=== PATIENT | female | born 1960 | race Caucasian/White ===

== ENCOUNTER → 2017-08-09 | Outpatient (CLI) | payer BC ==
[~2017-08-09] MED LIST: REGADENOSON 0.4 MG/5 ML DISP.SYRIN. IV ONE
--- NOTE | 2017-08-09 11:35 | PCVCIMAG ---
APPROVED REPORT Study performed: 08/09/2017 07:42:35 EXAM: Comprehensive 2D, Doppler, and color-flow Echocardiogram Patient Location: Echo lab Status: routine BSA: 1.94 HR: 56 bpmBP: 104/62 mmHg Rhythm: NSR Other Information Study Quality: Adequate Risk Factors: Cardiac Risk Factors: HTN, DM Indications Abnormal ECG 2D Dimensions LVEF(%): 48.49 (>50%) IVSd: 8.99 (7-11mm) LVDd: 45.02 mm PWd: 9.92 (7-11mm) LVDs: 34.07 (25-40mm) Left Atrium: 37.50 (27-40mm) Aortic Root: 25.59 mm LV Single Plane 4CH: 59.62 % LV Single Plane 2CH: 60.69 %Bentley's LVEF: 60.15 % Biplane EF: 60.1 % Volumes Left Atrial Volume (Systole) Single Plane 4CH: 61.20 mLSingle Plane 2CH: 72.06 mL LA ESV Index: 36.00 mL/m2 Aortic Valve AoV Peak Raul.: 1.73 m/s AO Peak Gr.: 11.92 mmHgLVOT Max P.40 mmHg LVOT Max V: 1.16 m/s Mitral Valve E/A Ratio: 0.9 MV Decel. Time: 314.23 ms MV E Max Raul.: 0.93 m/s MV A Raul.: 1.07 m/s IVRT: 107.27 ms Pulmonary Valve PV Peak Raul.: 1.14 m/sPV Peak Gr.: 5.23 mmHg Pulmonary Vein P Vein S: 0.43 m/sP Vein A: 0.33 m/s P Vein D: 0.62 m/sP Vein A Dur.: 138.4 msec P Vein S/D Ratio: 0.69 Tricuspid Valve TR Peak Raul.: 2.34 m/s TR Peak Gr.: 21.90 mmHg Left Ventricle The left ventricle is normal size. There is normal LV segmental wall motion. There is normal left ventricular wall thickness. Left ventricular systolic function is normal. The left ventricular ejection fraction is within the normal range. LVEF is 60-65%. Grade I - abnormal relaxation pattern. Right Ventricle The right ventricle is normal size. The right ventricular systolic function is normal. Atria The left atrium size is normal. The right atrium size is normal. Aortic Valve The aortic valve is normal in structure. No aortic regurgitation is present. There is no aortic valvular stenosis. Mitral Valve The mitral valve is normal in structure. Mild mitral regurgitation. No evidence of mitral valve stenosis. Tricuspid Valve The tricuspid valve is normal in structure. Trace tricuspid regurgitation with PAP of 29mmHg. Pulmonic Valve The pulmonary valve is normal in structure. There is no pulmonic valvular regurgitation. Great Vessels The aortic root is normal in size. IVC is normal in size and collapses with >50% inspiration Pericardium There is no pericardial effusion. <Conclusion> The left ventricle is normal size. LVEF is 60-65%. The aortic valve is normal in structure. The mitral valve is normal in structure. Mild mitral regurgitation. The tricuspid valve is normal in structure. Trace tricuspid regurgitation with PAP of 29mmHg. The pulmonary valve is normal in structure. There is no pericardial effusion.
--- NOTE | 2017-08-10 11:42 | PCVCIMAG ---
APPROVED REPORT Exam: Nuclear Stress Test Indication: Pre-Operative CV evaluation Patient Location: Out-Patient Stress Nurse: Page Cohen RN, NYDIA Sandoval Tech:Iris Cruzrefugio [facility] Ht: 5 ft 8 in Wt: 183 lbs BSA: 1.97 m2 HR: 63 bpm BP: 109/69 mmHg BMI: 27.8 Rhythm: NSR Medical History Medical History: HTN, Hyperlipidemia, Diabetic Noninsulin, Age, Family Hx CAD Medications: Bystolic, Atorvastatin, Amlodipine, Januvia, Benicar, Synthroid Allergies: Alleve, Hydrocodone Pretest Chest Pain Characteristics: No chest pain Exercise History: Physically active Meds Held (24 hrs): Geoff NM EXAM: Myocardial Perfusion REST/STRESS Imaging Protocol: Rest Tc-99m/Stress Tc-99m 1 day Resting Data Rest SPECT myocardial perfusion imaging was performed in supine position 45 minutes following the intravenous injection of 11 mCi of Tc-99m Sestamibi. Time of rest injection: 829 Date: 08/09/2017 Administration Route: IV Administration Site: Right AC Exercise Stress At peak stress, the patient was injected intravenously with 32.5mCi of Tc-99m Sestamibi. Time of stress injection: 0950 Date: 08/09/2017 Administration Route: IV Administration Site: Right AC Gated Stress SPECT was performed 45 minutes after stress injection. The images were gated to evaluate regional wall motion and calculate left ventricular ejection fraction. Study Data Post stress, the left ventricular ejection was 66%.. SSS: 2 SRS: 6 SDS: 0 TID = 0.81. Perfusion There is a medium area of severely reduced uptake in the apical segment of the anterior wall which is seen on the stress images as well as the resting images. This area thickens and moves normally and is most consistent with attenuation artifact. Wall Motion Normal left ventricular wall motion. Nuclear Conclusion 1. LOW RISK STUDY Interpreted by: Holly Chavira MD Electronically Approved: 08/10/2017 11:41:17 Stress Test Details Stress Test: Exercise stress testing was performed using a Elfego protocol. HR Resting HR: 63 bpmMax Heart Rate (APMHR): 161 bpm Max HR Achieved: 141 bpmTarget HR (85% APMHR): 136 bpm % of APMHR: 87 Recovery HR: 80 bpm BP Resting BP: 109/69 mmHg Max BP: 148/76 mmHg ECG Resting ECG: Sinus Rhythm Stress ECG: Sinus Tachycardia Recovery ECG: Sinus Rhythm Clinical Reason for Termination: Dyspnea, Fatigue Stress Symptoms: Dyspnea, Fatigue Exercise duration: 10 min 00 sec Highest Stage Achieved: Exercise capacity: 10.7 METs Overall Exercise Capacity for Age: Normal Scale: Active Angina Score: None Symptoms resolved during recovery. Stress ECG Conclusion 1. SUBJECTIVELY NEGATIVE FOR ISCHEMIA 2. ELECTROCARDIOGRAPHICALLY NEGATIVE FOR ISCHEMIA <Conclusion> 1. SUBJECTIVELY NEGATIVE FOR ISCHEMIA 2. ELECTROCARDIOGRAPHICALLY NEGATIVE FOR ISCHEMIA
== END | disposition home or self-care (01) ==
LOC: PCVCIMAG 08:01
PROVIDERS: ATTEND Internal Medicine
DX: I34.0 Nonrheumatic mitral (valve) insufficiency (principal); R94.31 Abnormal electrocardiogram [ECG] [EKG]; I10 Essential (primary) hypertension; E11.9 Type 2 diabetes mellitus without complications; I25.10 Atherosclerotic heart disease of native coronary artery without angina pectoris; E78.5 Hyperlipidemia, unspecified
CPT/HCPCS: 78452; 93017; 93306; A9500; J2785